=== PATIENT | female | born 1965 | race Caucasian/White ===

== ENCOUNTER 2022-03-11 17:32 | Emergency (ER) | payer OTHER ==
[~2022-03-11] VITALS: Ht 167.6 cm; Wt 72.6 kg
--- NOTE | 2022-03-11 17:35 | NUR ---
PT BROUGHT IN BY EMS FOR BLE WEAKNESS WHILE WALKING HER DOG; COMPLAINS OF PAIN ON RT HAND 01/25.
[2022-03-11] MEDS ORDERED: PROZAC (17:43)
[2022-03-11] MEDS ORDERED: GABAPENTIN (17:43)
[2022-03-11] MEDS ORDERED: SOMA (17:43)
[2022-03-11] MEDS ORDERED: CELEBREX (17:43)
[2022-03-11] MEDS ORDERED: CYMBALTA (17:43)
--- NOTE | 2022-03-11 17:52 | NUR ---
PT VSS; PT IN NAD
[2022-03-11 17:54] LABS: HEMATOCRIT 32.8 % (31.2-41.9); MEAN CORPUSCULAR HEMOGLOBIN 29.3 uug (24.7-32.8); MEAN CORPUSCULAR VOLUME 87.3 fL (75.5-95.3); PLATELET COUNT (AUTO) 491 K/uL (179-408)
[2022-03-11 18:01] LABS: *BILIRUBIN,URIN NEGATIVE (NEGATIVE); *BLOOD, URINE NEGATIVE (NEGATIVE); *CLARITY,URINE CLEAR (CLEAR); *COLOR,URINE YELLOW (YELLOW); *KETONES,URINE NEGATIVE (NEGATIVE); *UROBILINOGEN,URINE 0.2 E.U./dl (NORMAL); LEUKOCYTE ESTERASE ,URINE TRACE (NEGATIVE); NITRITE, URINE NEGATIVE (NEGATIVE); PH,URINE 5.5 (5.0-8.0); UGLUCOSE NEGATIVE (NEGATIVE)
[2022-03-11 18:06] LABS: BILIRUBIN,TOTAL 0.2 mg/dL (0.2-1.0); CREATININE 1.2 mg/dL (0.6-1.3); POTASSIUM 4.5 mmol/L (3.5-5.1); TOTAL PROTEIN, SERUM 7.6 g/dL (6.4-8.2)
[2022-03-11] MEDS ORDERED: KETOROLAC TROMETHAMINE 15 MG INJ ONE (18:58)
[2022-03-11] MEDS ORDERED: KETOROLAC TROMETHAMINE 15 MG INJ IM ONE (19:00)
[2022-03-11 19:24] LABS: BACTERIA,URINE FEW /HPF (NONE SEEN); RBC,URINE 0-3 /HPF (0-3); SQUAMOUS EPITHELIAL CELL,UR FEW /HPF (NONE SEEN)
[2022-03-11] MEDS ORDERED: NITR100C6 PO (20:11)
[2022-03-11 20:36] VITALS: BP 132/79
== END 2022-03-11 20:00 | disposition home or self-care (01) ==
LOC: ER 17:33
DX: R53.1 Weakness (principal); D75.839 Thrombocytosis, unspecified; R94.31 Abnormal electrocardiogram [ECG] [EKG]; F31.9 Bipolar disorder, unspecified; F41.9 Anxiety disorder, unspecified; Z87.448 Personal history of other diseases of urinary system; Z79.899 Other long term (current) drug therapy
CPT/HCPCS: 99285; 71045; 80053; 81001; 85025; 87086; 84484; 36415; 93005 ×2; 96372; J1885; A4663

== ENCOUNTER 2022-04-14 10:32 | Emergency (ER) | payer OTHER ==
[~2022-04-14] VITALS: Ht 162.6 cm; Wt 63.5 kg
[~2022-04-14 10:32] MED LIST: CELEBREX; CYMBALTA; GABAPENTIN; NITR100C6 PO; PROZAC; SOMA
[2022-04-14] MEDS ORDERED: ONDANSETRON ODT 4 MG TAB.RAPDIS ONE (10:57)
[2022-04-14] MEDS ORDERED: MORPHINE SULFATE 4 MG/1 ML DISP.SYRIN ONE (10:57)
[2022-04-14] MEDS ORDERED: ONDANSETRON ODT 4 MG TAB.RAPDIS SL ONE (11:00)
[2022-04-14] MEDS ORDERED: MORPHINE SULFATE 4 MG/1 ML DISP.SYRIN IM ONE (11:00)
[2022-04-14] MEDS ORDERED: METH4TAB3 PO (11:40)
[2022-04-14] MEDS ORDERED: NAPR500T6 PO (11:40)
[2022-04-14] MEDS ORDERED: KETOROLAC TROMETHAMINE 30 MG INJ ONE (11:53)
[2022-04-14] MEDS ORDERED: KETOROLAC TROMETHAMINE 30 MG INJ IM ONE (12:00)
== END 2022-04-14 12:10 | disposition home or self-care (01) ==
LOC: ER 10:32
DX: M54.42 Lumbago with sciatica, left side (principal); Z88.2 Allergy status to sulfonamides
CPT/HCPCS: 99284; 72131; 96372 ×2; J1885; J2270; A4663; Q0162

== ENCOUNTER 2022-04-23 19:55 | Emergency (ER) | payer OTHER ==
[~2022-04-23] VITALS: Ht 157.5 cm; Wt 62.6 kg
[~2022-04-23 19:55] MED LIST changes: +METH4TAB3 PO; +NAPR500T6 PO
--- NOTE | 2022-04-23 20:02 | NUR ---
Dr Wilks into eval patient.
[2022-04-23] MEDS ORDERED: KETOROLAC TROMETHAMINE 30 MG INJ ONE (20:09)
[2022-04-23] MEDS ORDERED: KETOROLAC TROMETHAMINE 30 MG INJ IM ONE (20:15)
--- NOTE | 2022-04-23 20:15 | NUR ---
Patient discharged to home in stable condition. Written and verbal after care instructions given. Patient verbalizes understanding of instructions. Stressed follow up or return to ER for worsening s/s.
[2022-04-23 20:16] VITALS: BP 154/98
== END 2022-04-23 20:16 | disposition home or self-care (01) ==
LOC: ER 19:56
DX: G89.29 Other chronic pain (principal); M54.42 Lumbago with sciatica, left side; Z88.2 Allergy status to sulfonamides
CPT/HCPCS: 99283; 96372; J1885; A4663

== ENCOUNTER 2022-05-01 15:20 | Emergency (ER) | payer OTHER ==
[~2022-05-01] VITALS: Ht 154.9 cm; Wt 55.3 kg
[2022-05-01] MEDS ORDERED: CARI350T PO (15:28)
[2022-05-01] MEDS ORDERED: KETOROLAC TROMETHAMINE 30 MG INJ ONE (15:29)
[2022-05-01] MEDS ORDERED: KETOROLAC TROMETHAMINE 30 MG INJ IM ONE (15:30)
[2022-05-01 15:39] VITALS: BP 112/73
== END 2022-05-01 15:40 | disposition home or self-care (01) ==
LOC: ER 15:20
DX: M79.652 Pain in left thigh (principal); G89.29 Other chronic pain; Z76.0 Encounter for issue of repeat prescription
CPT/HCPCS: 99283; 96372; J1885; A4663

== ENCOUNTER 2022-05-17 16:43 | Emergency (ER) | END 2022-05-17 17:16 | disposition home or self-care (01) | DX: G89.29 Other chronic pain (principal); M79.652 Pain in left thigh; Z87.81 Personal history of (healed) traumatic fracture | CPT/HCPCS: 99283; 96372; J1885 ==

== ENCOUNTER 2022-06-16 14:54 | Emergency (ER) | payer OTHER ==
[~2022-06-16] VITALS: Ht 157.5 cm; Wt 63.5 kg
[~2022-06-16 14:54] MED LIST changes: +CARI350T PO
[2022-06-16] MEDS ORDERED: HYDROCODONE/APAP 5-325MG TABLET PO ONE (16:00)
[2022-06-16] MEDS ORDERED: KETOROLAC TROMETHAMINE 15 MG INJ IM ONE (16:00)
[2022-06-16] MEDS ORDERED: HYDROCODONE/APAP 5-325MG TABLET ONE (16:04)
[2022-06-16] MEDS ORDERED: KETOROLAC TROMETHAMINE 15 MG INJ ONE (16:04)
--- NOTE | 2022-06-16 16:15 | NUR ---
Pt arrived w/ c/o back pain, 7-12/25. Seen by Dr. Barba for MSE.
== END 2022-06-16 16:25 | disposition home or self-care (01) ==
LOC: ER 14:54
DX: M54.40 Lumbago with sciatica, unspecified side (principal); R21 Rash and other nonspecific skin eruption; Z88.2 Allergy status to sulfonamides
CPT/HCPCS: 99283; 96372; J1885; A4663

== ENCOUNTER 2022-08-20 16:54 | Emergency (ER) | payer OTHER ==
[~2022-08-20] VITALS: Ht 157.5 cm; Wt 62.6 kg
[~2022-08-20 16:54] MED LIST changes: +EMOL85CR2 TOP
[2022-08-20] MEDS ORDERED: METH4TAB3 PO (17:26)
[2022-08-20] MEDS ORDERED: methylPREDNISolone ACETATE 40 MG VIAL IM ONE (17:30)
[2022-08-20] MEDS ORDERED: HYDROCODONE/APAP 5-325MG TABLET ONE (17:30)
[2022-08-20] MEDS ORDERED: HYDROCODONE/APAP 5-325MG TABLET PO ONE (17:30)
[2022-08-20] MEDS ORDERED: methylPREDNISolone ACETATE 80 MG VIAL ONE (17:41)
[2022-08-20 17:47] VITALS: BP 130/80
--- NOTE | 2022-08-20 17:48 | NUR ---
57 years old female presents to er with face rash, redness seen evaluated meds given as prescribed tolerated well condition stable d/c home with instructions after care reviewed understood left er ambulatory with steady gait. no sob, speak in full sentence.
[2022-08-20] MEDS ORDERED: HYDR-4209 PO (17:54)
== END 2022-08-20 17:57 | disposition home or self-care (01) ==
LOC: ER 16:54
DX: L30.9 Dermatitis, unspecified (principal); G43.909 Migraine, unspecified, not intractable, without status migrainosus; Z79.899 Other long term (current) drug therapy; Z88.2 Allergy status to sulfonamides; Z88.8 Allergy status to other drugs, medicaments and biological substances
CPT/HCPCS: 99283; 96372; J1040; A4663

== ENCOUNTER 2022-12-16 17:01 | Emergency (ER) | payer OTHER ==
[~2022-12-16] VITALS: Ht 157.5 cm; Wt 62.6 kg
[~2022-12-16 17:01] MED LIST changes: +HYDR-4209 PO
--- NOTE | 2022-12-16 17:36 | NUR ---
BIB family from home with c/o migraine, informed of plan of care, has been seen by ER provider, will continue to monitor.
[2022-12-16] MEDS ORDERED: IV NORMAL SALINE 1000 ML BAG IV ONE (17:45)
[2022-12-16] MEDS ORDERED: diphenhydrAMINE 50 MG/1 ML VIAL IV ONE (17:45)
[2022-12-16] MEDS ORDERED: PROCHLORPERAZINE EDISYLATE 10 MG/2 ML VIAL IV ONE (17:45)
[2022-12-16] MEDS ORDERED: KETOROLAC TROMETHAMINE 15 MG INJ IVP ONE (17:45)
[2022-12-16] MEDS ORDERED: diphenhydrAMINE 50 MG/1 ML VIAL ONE (17:53)
[2022-12-16] MEDS ORDERED: PROCHLORPERAZINE EDISYLATE 10 MG/2 ML VIAL ONE (17:53)
[2022-12-16] MEDS ORDERED: KETOROLAC TROMETHAMINE 15 MG INJ ONE (17:53)
--- NOTE | 2022-12-16 18:54 | NUR ---
PATIENT STATES THAT SHE FEELS BETTER, IVF ALMOST COMPLETE, WHEN DONE MAY DISCHARGE HOME.
--- NOTE | 2022-12-16 19:01 | NUR ---
Received patient aox4, resting comfortably in bed, eyes closed. No signs of acute distress noted.
[2022-12-16 19:37] VITALS: BP 115/84; TEMP 98.4; O2SAT 97
== END 2022-12-16 19:38 | disposition home or self-care (01) ==
LOC: ER 17:01
DX: G43.909 Migraine, unspecified, not intractable, without status migrainosus (principal); Z88.2 Allergy status to sulfonamides; Z88.8 Allergy status to other drugs, medicaments and biological substances; Z79.899 Other long term (current) drug therapy
CPT/HCPCS: 99284; 96374; 96375; 96361; J1200; J1885; J0780; J7040; A4663

== ENCOUNTER 2023-04-27 15:32 | Emergency (ER) | payer OTHER ==
[~2023-04-27] VITALS: Ht 157.5 cm; Wt 65.8 kg
[2023-04-27] MEDS ORDERED: HYDR-3980 PO (17:55)
[2023-04-27] MEDS ORDERED: KETO10TA2 PO (17:55)
[2023-04-27] MEDS ORDERED: KETOROLAC TROMETHAMINE 60 MG INJ IM ONE ×2 (18:00→18:12)
[2023-04-27 18:58] VITALS: BP 116/70; O2SAT 98
== END 2023-04-27 18:58 | disposition home or self-care (01) ==
LOC: ER 15:32
DX: R10.2 Pelvic and perineal pain (principal); G43.909 Migraine, unspecified, not intractable, without status migrainosus; Z88.2 Allergy status to sulfonamides; Z88.8 Allergy status to other drugs, medicaments and biological substances; Z79.899 Other long term (current) drug therapy
CPT/HCPCS: 73502; J1885